=== PATIENT | male | born 1950 | race African-American/Black ===

== ENCOUNTER 2018-10-18 10:11 | Day surgery (SDC) | payer MEDICARE, OTHER ==
[2018-10-17 14:59] VITALS: BMI 151.1
[2018-10-18] MEDS ORDERED: Oxymetazoline HCl 0.05% ( 15 ML ) ONE ×2 (12:10→13:02)
[2018-10-18 12:46] LABS: Hemoglobin 13.2 g/dL (14.0-18.0)
[2018-10-18] MEDS ORDERED: Bacitracin Zinc Ointment 30 gm TUBE ONE (13:02)
[2018-10-18] MEDS ORDERED: Lidocaine 1% w/Epinephrine 1:100K 20 ML VIAL ONE (13:02)
[2018-10-18 13:03] LABS: Anion Gap 10 mmol/L (10-20); BUN (Urea Nitrogen) 10 mg/dL (8.4-25.7); Calc. Creatinine Clearance 96 mL/min (70-130); Calcium 9.4 mg/dL (7.8-10.44); Carbon Dioxide 28 mmol/L (23-31); Chloride 107 mmol/L (98-107); Estimated GFR-MDRD Greater than 90; Glucose 83 mg/dL (80-115); Potassium 4.1 mmol/L (3.5-5.1); Sodium 141 mmol/L (136-145)
[2018-10-18] MEDS ORDERED: Midazolam HCl 2 mg/2 ml Vial ONE (13:29)
[2018-10-18] MEDS ORDERED: Fentanyl 100 MCG/2 ML VIAL ONE (13:29)
[2018-10-18] MEDS ORDERED: Succinylcholine Chloride 20 MG/ML 10 ml SYRINGE FS ONE (16:17)
[2018-10-18] MEDS ORDERED: Lidocaine 1% PF 5 ML VIAL ONE (16:17)
[2018-10-18] MEDS ORDERED: PROPOFOL 200 MG/20 ML VIAL ONE (16:17)
--- NOTE | 2018-10-19 12:11 | OP ---
DATE OF PROCEDURE: 10/18/2018 PREOPERATIVE DIAGNOSES: 1. Chronic rhinosinusitis. 2. Nasal septal deviation. 3. Bilateral inferior turbinate hypertrophy. 4. Nasal obstruction. POSTOPERATIVE DIAGNOSES: 1. Chronic rhinosinusitis. 2. Nasal septal deviation. 3. Bilateral inferior turbinate hypertrophy. 4. Nasal obstruction. PROCEDURES PERFORMED: 1. Bilateral endoscopic sinus surgery, total ethmoidectomies. 2. Bilateral endoscopic sinus surgery, maxillary antrostomies. 3. Bilateral endoscopic sinus surgery, frontal sinusotomies. 4. Bilateral endoscopic sinus surgery, sphenoidotomies. 5. Nasal septoplasty. 6. Bilateral inferior turbinate submucosal resection. ESTIMATED BLOOD LOSS: 0 mL. COMPLICATIONS: None. ANESTHESIA: GETA. PROCEDURE IN DETAIL: Patient was taken to the operating room and placed supine on the table. General endotracheal anesthesia was obtained by the anesthesia staff. Tube was secured in the left lower lip. Patient was then placed in the beach chair position, and Afrin pledgets were placed in the nasal cavity. Injections of 1% lidocaine with 1:100,000 epinephrine were made into the nasal septum as well as the inferior turbinates. Patient was then prepped and draped in standard surgical fashion for nasal surgery. Following this, the Afrin pledgets were removed. A Claudio incision was made on the left nasal septum. Submucoperichondrial dissection was performed. The deviated portions of the septum included portions of the cartilage and the bony septum. These isolated areas were removed using 3 cutting rongeurs. There was noted to be a large dorsal and caudal strut, left intact for support of the nose. The mucoperichondrial flaps were then reapproximated using a 4-0 gut stitch. Any straight pieces of cartilage were crushed prior to this and placed between the mucoperichondrial flaps. Following this, the inferior turbinates were then punctured with a submucosal coblation wand, and submucosal coblations were performed of multiple areas of the inferior portion of the anterior inferior turbinate. Following this, the middle turbinate was gently medialized using a Kent elevator and the uncinate process was identified bilaterally. Following this, the uncinate process was anteriorly fractured using a ball-ended probe and was then removed using the microdebrider and the up-biting Blakesley forceps bilaterally. Following this, the natural maxillary sinus ostia was identified with a ball-ended probe and was widened using the curved microdebrider and a straight Blakesley forceps bilaterally. Following this, the ethmoidal bulla was identified and was punctured on its medial and inferior aspect with microdebrider and it was removed using the microdebrider and the up-biting Blakesley forceps. Following this, the grand lamella was identified and was punctured into the posterior ethmoidal cells using the microdebrider. Working from posterior to anterior, the ethmoidal cells were opened in a mucosal-sparing technique. Following this, the sphenoid sinuses were approached through the previous ethmoidectomies, where the sphenoid sinus ostia were identified and was gently widened medially and inferiorly using the straight microdebrider bilaterally. Following this, the frontal sinus ostia was identified using the 45-degree scope and the curved microdebrider, the frontal recess cells were opened as well as the frontal sinus ostia bilaterally using the microdebrider. Following this, the nasal cavity was irrigated. Mirapex was placed. Ribera splints were placed and secured. The patient tolerated the procedure well. Please note that the submucosal microdebrider was used just submucosally to resect the anterior and inferior portions of the inferior turbinates. Job ID: [id number]
== END 2018-10-18 15:59 | disposition home or self-care (01) ==
LOC: SDC 10:11
PROVIDERS: ATTEND Otolaryngology Plastic Surgery within the Head & Neck
PROC: 09SM0ZZ Reposition Nasal Septum, Open Approach (ICD-10-PCS; principal; 2018-10-18)
PROC: 09TL0ZZ Resection of Nasal Turbinate, Open Approach (ICD-10-PCS; 2018-10-18)
PROC: 09TV8ZZ Resection of Left Ethmoid Sinus, Via Natural or Artificial Opening Endoscopic (ICD-10-PCS; 2018-10-18)
PROC: 09TU8ZZ Resection of Right Ethmoid Sinus, Via Natural or Artificial Opening Endoscopic (ICD-10-PCS; 2018-10-18)
PROC: 099T8ZZ Drainage of Left Frontal Sinus, Via Natural or Artificial Opening Endoscopic (ICD-10-PCS; 2018-10-18)
PROC: 099W8ZZ Drainage of Right Sphenoid Sinus, Via Natural or Artificial Opening Endoscopic (ICD-10-PCS; 2018-10-18)
PROC: 099X8ZZ Drainage of Left Sphenoid Sinus, Via Natural or Artificial Opening Endoscopic (ICD-10-PCS; 2018-10-18)
PROC: 099Q8ZZ Drainage of Right Maxillary Sinus, Via Natural or Artificial Opening Endoscopic (ICD-10-PCS; 2018-10-18)
PROC: 099R8ZZ Drainage of Left Maxillary Sinus, Via Natural or Artificial Opening Endoscopic (ICD-10-PCS; 2018-10-18)
PROC: 099S8ZZ Drainage of Right Frontal Sinus, Via Natural or Artificial Opening Endoscopic (ICD-10-PCS; 2018-10-18)
DX: J32.4 Chronic pansinusitis (principal); J34.2 Deviated nasal septum; J34.3 Hypertrophy of nasal turbinates; J34.89 Other specified disorders of nose and nasal sinuses; I10 Essential (primary) hypertension; M06.9 Rheumatoid arthritis, unspecified; F17.200 Nicotine dependence, unspecified, uncomplicated; Z79.899 Other long term (current) drug therapy
CPT/HCPCS: 36415; 80048; 85014; 85018; 93005; 93010; J0131; J2001; J2250; J2704; J3010